=== PATIENT | female | born 1930 | race Caucasian/White ===

== ENCOUNTER 2020-11-10 18:53 | Inpatient (IN) ==
[2020-11-10] MEDS ORDERED: NS 0.9% 1000 ml BAG 1,000 ML IV ONE (18:55)
[2020-11-10] MEDS ORDERED: Iodixanol (CONTRAST) 320 MG/ML 100 ML SDV IV ONE (19:10)
[2020-11-10 19:51] LABS: Activated Partial Thrombo Time 25.6 seconds (26.0-38.0); INR 1.08 (0.86-1.15)
[2020-11-10 19:54] LABS: ABS Eosinophils 0.2 10^3/ul (0-0.6); ABS Lymphocytes 2.1 10^3/ul (1.0-4.8); ABS Monocytes 0.7 10^3/ul (0-0.8); ABS Neutrophils 4.1 10^3/ul (1.5-7.7); Eosinophil % 2.3 %; Hematocrit 37 % (35-47); Hemoglobin 12.1 g/dL (12.0-16.0); Lymphocyte % 29.9 %; Mean Corpuscular HGB Conc 33 g/dL (31-36); Mean Corpuscular Hemoglobin 31 pg (27-31); Mean Corpuscular Volume 93 fL (80-97); Mean Platelet Volume 7.7 fL (7.4-10.4); Platelet Count 242 10^3/uL (150-450); Red Blood Count 3.91 10^6 /uL (3.70-4.87); Red Cell Distribution Width 14 % (10-15); White Blood Count 7.1 10^3/uL (3.5-10.8)
[2020-11-10 20:09] LABS: Albumin/Globulin Ratio 1.6 (1-3); Calcium 9.2 mg/dL (8.6-10.3); EGFR African American 64.7 (>60); EGFR Non-African American 53.4 (>60); Globulin 2.5 g/dL (2-4); HDL Cholesterol 45.2 mg/dL; Total Bilirubin 0.4 mg/dL (0.2-1.0); Total Protein 6.5 g/dL (6.4-8.9)
[2020-11-10 20:10] LABS: Troponin I 0.01 ng/mL (<0.03)
[2020-11-10 20:21] LABS: Potassium 5.1 mmol/L (3.5-5.0)
[2020-11-11] MEDS ORDERED: hydrALAZINE 20 mg/ml 1 ML Vial IV IV SLOW PU ONE ×2 (00:01→02:16)
[2020-11-11] MEDS: Lactated Ringers 1000 ml BAG 1,000 ML IV SCH ×2 (00:09→21:55)
[2020-11-11] MEDS ORDERED: Dextrose 50% Syringe 50 ml 25 GM/50 ML SYRINGE IV PUSH PRN (02:17)
[2020-11-11] MEDS ORDERED: Labetalol IV 5 MG/ML 20 ml VIAL IV PUSH ONE ×2 (04:47→15:36)
[2020-11-11 07:29] LABS: ABS Eosinophils 0.1 10^3/ul (0-0.6); ABS Lymphocytes 2.1 10^3/ul (1.0-4.8); ABS Monocytes 0.7 10^3/ul (0-0.8); ABS Neutrophils 6.4 10^3/ul (1.5-7.7); Eosinophil % 0.6 %; Hematocrit 35 % (35-47); Lymphocyte % 22.4 %; Mean Corpuscular HGB Conc 34 g/dL (31-36); Mean Corpuscular Hemoglobin 31 pg (27-31); Mean Corpuscular Volume 91 fL (80-97); Mean Platelet Volume 7.5 fL (7.4-10.4); Nucleated Red Blood Cells % 0.1; Platelet Count 217 10^3/uL (150-450); Red Blood Count 3.89 10^6 /uL (3.70-4.87); Red Cell Distribution Width 13 % (10-15); White Blood Count 9.2 10^3/uL (3.5-10.8)
[2020-11-11] MEDS ORDERED: Albuterol HFA INHALER 8 gm MDI INH PRN (07:45)
[2020-11-11 07:47] LABS: Calcium 8.4 mg/dL (8.6-10.3); EGFR African American 98.6 (>60); EGFR Non-African American 81.5 (>60)
[2020-11-11] MEDS: Heparin DRIP 25,000 UNITS BAG 25,000 UNITS/500 ML BAG IV SCH (21:28)
[2020-11-12] MEDS: Lactated Ringers 1000 ml BAG 1,000 ML IV SCH ×2 (06:23→14:29)
[2020-11-13] MEDS: Lactated Ringers 1000 ml BAG 1,000 ML IV SCH (05:47)
[2020-11-13] MEDS: Heparin DRIP 25,000 UNITS BAG 25,000 UNITS/500 ML BAG IV SCH (05:49)
[2020-11-13 06:12] LABS: ABS Eosinophils 0.2 10^3/ul (0-0.6); ABS Lymphocytes 1.8 10^3/ul (1.0-4.8); ABS Monocytes 0.9 10^3/ul (0-0.8); Eosinophil % 1.9 %; Hematocrit 35 % (35-47); Lymphocyte % 20.5 %; Mean Corpuscular HGB Conc 35 g/dL (31-36); Mean Corpuscular Hemoglobin 31 pg (27-31); Mean Corpuscular Volume 90 fL (80-97); Nucleated Red Blood Cells % 0.1; Platelet Count 210 10^3/uL (150-450); Red Blood Count 3.85 10^6 /uL (3.70-4.87); Red Cell Distribution Width 13 % (10-15); White Blood Count 8.9 10^3/uL (3.5-10.8)
[2020-11-13 06:41] LABS: Calcium 8.7 mg/dL (8.6-10.3); EGFR African American 113.9 (>60); EGFR Non-African American 94.1 (>60); Potassium 3.7 mmol/L (3.5-5.0)
[2020-11-14 07:01] LABS: Urine Appearance Cloudy; Urine Bilirubin Negative (Negative); Urine Blood 1+ (Negative); Urine Color Yellow; Urine Glucose 3+(>=500 mg/dL) (Negative); Urine Ketones Negative (Negative); Urine Nitrite Positive (Negative); Urine Protein Negative (Negative); Urine Specific Gravity 1.006 (1.002-1.030); Urine Urobilinogen Negative (Negative)
[2020-11-14 07:23] LABS: Urine Bacteria Absent (Absent); Urine Red Blood Cell Trace(0-2/hpf) (Absent); Urine White Blood Cell Trace(0-5/hpf) (Absent)
[2020-11-14] MEDS ORDERED: Iodixanol (CONTRAST) 320 MG/ML 100 ML SDV IV SCH (12:04)
[2020-11-14] MEDS ORDERED: Iodixanol (CONTRAST) 320 MG/ML 100 ML SDV IV ONE (12:04)
[2020-11-14] MEDS: NS 0.9% 1000 ml BAG 1,000 ML IV SCH (13:40)
[2020-11-15] MEDS: NS 0.9% 1000 ml BAG 1,000 ML IV SCH (01:16)
[2020-11-15 05:02] LABS: ABS Eosinophils 0.1 10^3/ul (0-0.6); ABS Lymphocytes 1.1 10^3/ul (1.0-4.8); ABS Monocytes 0.8 10^3/ul (0-0.8); ABS Neutrophils 6.3 10^3/ul (1.5-7.7); Eosinophil % 0.7 %; Hematocrit 34 % (35-47); Hemoglobin 11.6 g/dL (12.0-16.0); Lymphocyte % 13.7 %; Mean Corpuscular HGB Conc 34 g/dL (31-36); Mean Corpuscular Hemoglobin 31 pg (27-31); Mean Corpuscular Volume 90 fL (80-97); Mean Platelet Volume 7.9 fL (7.4-10.4); Platelet Count 211 10^3/uL (150-450); Red Blood Count 3.76 10^6 /uL (3.70-4.87); Red Cell Distribution Width 14 % (10-15); White Blood Count 8.3 10^3/uL (3.5-10.8)
[2020-11-15 05:18] LABS: Calcium 8.2 mg/dL (8.6-10.3); EGFR African American 79.4 (>60); EGFR Non-African American 65.6 (>60); Potassium 3.8 mmol/L (3.5-5.0)
[2020-11-15 13:17] VITALS: BP 159/58
== END 2020-11-15 14:02 | disposition short-term general hospital (02) | DRG 64 ==
LOC: ED 18:53 → MEDTELE 18:53
PROVIDERS: ADMIT Internal Medicine; ATTEND Internal Medicine

== ENCOUNTER 2020-11-21 13:15 | Inpatient (IN) ==
[2020-11-21] MEDS ORDERED: Dextrose 50% Syringe 50 ml 25 GM/50 ML SYRINGE IV PUSH PRN (17:48)
[2020-11-22] MEDS: Heparin 5000 UNITS/ML 1 mL VIAL SUBCUT SCH ×2 (09:26→20:31)
[2020-11-22] MEDS: GLIMEPIRIDE 2 MG PO SCH ×2 (09:36→20:31)
[2020-11-23 06:57] LABS: ABS Eosinophils 0.2 10^3/ul (0-0.6); ABS Monocytes 0.7 10^3/ul (0-0.8); ABS Neutrophils 2.6 10^3/ul (1.5-7.7); Eosinophil % 3.4 %; Hematocrit 30 % (35-47); Hemoglobin 10.5 g/dL (12.0-16.0); Lymphocyte % 36.7 %; Mean Corpuscular HGB Conc 35 g/dL (31-36); Mean Corpuscular Hemoglobin 31 pg (27-31); Mean Corpuscular Volume 90 fL (80-97); Mean Platelet Volume 7.3 fL (7.4-10.4); Nucleated Red Blood Cells % 0.1; Platelet Count 276 10^3/uL (150-450); Red Blood Count 3.39 10^6 /uL (3.70-4.87); Red Cell Distribution Width 13 % (10-15); White Blood Count 5.4 10^3/uL (3.5-10.8)
[2020-11-23 07:10] LABS: Albumin 3.5 g/dL (3.2-5.2); Albumin/Globulin Ratio 1.3 (1-3); Calcium 8.6 mg/dL (8.6-10.3); EGFR African American 98.6 (>60); EGFR Non-African American 81.5 (>60); Globulin 2.6 g/dL (2-4); Potassium 4.4 mmol/L (3.5-5.0); Total Bilirubin 0.4 mg/dL (0.2-1.0); Total Protein 6.1 g/dL (6.4-8.9)
[2020-11-23] MEDS: Heparin 5000 UNITS/ML 1 mL VIAL SUBCUT SCH ×2 (08:57→20:25)
[2020-11-23] MEDS: GLIMEPIRIDE 2 MG PO SCH ×2 (08:57→20:24)
[2020-11-24] MEDS: Heparin 5000 UNITS/ML 1 mL VIAL SUBCUT SCH ×2 (08:16→20:11)
[2020-11-24] MEDS: GLIMEPIRIDE 2 MG PO SCH ×2 (08:16→20:11)
[2020-11-24] MEDS: Senna TAB 8.6 mg TAB PO PRN (20:10)
[2020-11-25] MEDS: GLIMEPIRIDE 2 MG PO SCH ×2 (08:12→20:05)
[2020-11-25] MEDS: Heparin 5000 UNITS/ML 1 mL VIAL SUBCUT SCH ×2 (08:14→20:05)
[2020-11-25 14:21] LABS: ABS Eosinophils 0.2 10^3/ul (0-0.6); ABS Lymphocytes 1.8 10^3/ul (1.0-4.8); ABS Monocytes 0.6 10^3/ul (0-0.8); ABS Neutrophils 4.9 10^3/ul (1.5-7.7); Eosinophil % 2.5 %; Hematocrit 35 % (35-47); Hemoglobin 11.7 g/dL (12.0-16.0); Lymphocyte % 24.4 %; Mean Corpuscular HGB Conc 34 g/dL (31-36); Mean Corpuscular Hemoglobin 31 pg (27-31); Mean Corpuscular Volume 92 fL (80-97); Mean Platelet Volume 7.5 fL (7.4-10.4); Nucleated Red Blood Cells % 0.1; Platelet Count 303 10^3/uL (150-450); Red Blood Count 3.81 10^6 /uL (3.70-4.87); Red Cell Distribution Width 13 % (10-15); White Blood Count 7.5 10^3/uL (3.5-10.8)
[2020-11-25 14:31] LABS: Calcium 9.1 mg/dL (8.6-10.3); EGFR African American 71.3 (>60); Magnesium 1.9 mg/dL (1.9-2.7); Phosphorus 3.6 mg/dL (2.5-5.0); Potassium 4.6 mmol/L (3.5-5.0)
[2020-11-25] MEDS ORDERED: NS 0.9% 500 ml BAG 500 ML IV ONE (14:51)
[2020-11-25 15:44] LABS: Albumin/Globulin Ratio 1.3 (1-3); Direct Bilirubin 0.1 mg/dL (0.03-0.18); Indirect Bilirubin 0.2 mg/dL (0.3-1.0); Total Bilirubin 0.3 mg/dL (0.2-1.0)
[2020-11-25 15:49] LABS: INR 1.03 (0.86-1.15)
[2020-11-25 16:20] LABS: Urine Appearance Cloudy; Urine Bilirubin Negative (Negative); Urine Blood 1+ (Negative); Urine Color Yellow; Urine Glucose Negative (Negative); Urine Ketones Negative (Negative); Urine Nitrite Negative (Negative); Urine Protein Negative (Negative); Urine Specific Gravity 1.013 (1.002-1.030); Urine Urobilinogen Negative (Negative)
[2020-11-25 16:34] LABS: Urine Bacteria Absent (Absent); Urine Red Blood Cell Absent (Absent); Urine White Blood Cell 1+(6-10/hpf) (Absent)
[2020-11-26] MEDS: GLIMEPIRIDE 2 MG PO SCH ×2 (08:26→21:03)
[2020-11-26] MEDS: Heparin 5000 UNITS/ML 1 mL VIAL SUBCUT SCH ×2 (08:26→21:03)
[2020-11-27] MEDS: Heparin 5000 UNITS/ML 1 mL VIAL SUBCUT SCH ×2 (10:05→21:19)
[2020-11-27] MEDS: GLIMEPIRIDE 2 MG PO SCH ×2 (10:09→21:19)
[2020-11-28] MEDS: GLIMEPIRIDE 2 MG PO SCH ×2 (10:10→21:14)
[2020-11-28] MEDS: Heparin 5000 UNITS/ML 1 mL VIAL SUBCUT SCH ×2 (10:10→21:14)
[2020-11-28] MEDS: Senna TAB 8.6 mg TAB PO PRN (21:14)
[2020-11-29] MEDS: Cefepime 1 GM in Dextrose 1 GM/50 ML BAG IV SCH ×3 (00:10→23:36)
[2020-11-29] MEDS: Heparin 5000 UNITS/ML 1 mL VIAL SUBCUT SCH ×2 (08:06→20:25)
[2020-11-29] MEDS: GLIMEPIRIDE 2 MG PO SCH ×2 (08:06→20:23)
[2020-11-30 07:50] LABS: ABS Eosinophils 0.2 10^3/ul (0-0.6); ABS Lymphocytes 1.5 10^3/ul (1.0-4.8); ABS Monocytes 0.4 10^3/ul (0-0.8); ABS Neutrophils 3.3 10^3/ul (1.5-7.7); Eosinophil % 3.7 %; Hematocrit 34 % (35-47); Hemoglobin 11.9 g/dL (12.0-16.0); Lymphocyte % 27.2 %; Mean Corpuscular HGB Conc 35 g/dL (31-36); Mean Corpuscular Hemoglobin 32 pg (27-31); Mean Corpuscular Volume 91 fL (80-97); Mean Platelet Volume 7.4 fL (7.4-10.4); Platelet Count 275 10^3/uL (150-450); Red Blood Count 3.68 10^6 /uL (3.70-4.87); Red Cell Distribution Width 14 % (10-15); White Blood Count 5.5 10^3/uL (3.5-10.8)
[2020-11-30] MEDS: GLIMEPIRIDE 2 MG PO SCH ×2 (08:07→21:51)
[2020-11-30 08:08] LABS: Albumin 3.9 g/dL (3.2-5.2); Albumin/Globulin Ratio 1.3 (1-3); Calcium 9.3 mg/dL (8.6-10.3); EGFR African American 90.8 (>60); EGFR Non-African American 75.1 (>60); Globulin 3.1 g/dL (2-4); Total Bilirubin 0.5 mg/dL (0.2-1.0)
[2020-11-30] MEDS: Heparin 5000 UNITS/ML 1 mL VIAL SUBCUT SCH ×2 (08:15→21:50)
[2020-11-30 09:19] LABS: Potassium 4.8 mmol/L (3.5-5.0)
[2020-11-30] MEDS: Cefepime 1 GM in Dextrose 1 GM/50 ML BAG IV SCH ×2 (10:00→23:50)
[2020-11-30] MEDS: Senna TAB 8.6 mg TAB PO PRN (21:51)
[2020-12-01] MEDS: GLIMEPIRIDE 2 MG PO SCH ×2 (09:07→21:52)
[2020-12-01] MEDS: Heparin 5000 UNITS/ML 1 mL VIAL SUBCUT SCH ×2 (09:07→21:53)
[2020-12-01] MEDS: Cefepime 1 GM in Dextrose 1 GM/50 ML BAG IV SCH ×2 (13:20→22:59)
[2020-12-02] MEDS: Heparin 5000 UNITS/ML 1 mL VIAL SUBCUT SCH ×2 (09:49→21:20)
[2020-12-02] MEDS: GLIMEPIRIDE 2 MG PO SCH ×2 (10:00→21:21)
[2020-12-02] MEDS: Cefepime 1 GM in Dextrose 1 GM/50 ML BAG IV SCH (11:05)
[2020-12-02] MEDS: Cefepime 1 GM in NS 0.9% 50 ML 50 ML IVPB SCH (22:46)
[2020-12-03 08:03] LABS: Albumin 3.8 g/dL (3.2-5.2); Albumin/Globulin Ratio 1.3 (1-3); Calcium 9.1 mg/dL (8.6-10.3); EGFR African American 81.7 (>60); EGFR Non-African American 67.5 (>60); Globulin 2.9 g/dL (2-4); Total Bilirubin 0.5 mg/dL (0.2-1.0); Total Protein 6.7 g/dL (6.4-8.9)
[2020-12-03] MEDS: Heparin 5000 UNITS/ML 1 mL VIAL SUBCUT SCH ×2 (10:28→21:00)
[2020-12-03] MEDS: GLIMEPIRIDE 2 MG PO SCH ×2 (10:28→21:00)
[2020-12-03] MEDS: Cefepime 1 GM in NS 0.9% 50 ML 50 ML IVPB SCH ×2 (12:25→23:17)
[2020-12-03 15:00] LABS: HIV 4th Generation Nonreactive (Nonreactive)
[2020-12-03 15:32] LABS: Hepatitis B Surface Antigen Nonreactive (Nonreactive)
[2020-12-03 15:50] LABS: Hepatitis C Antibody Negative (Negative)
[2020-12-04 05:50] VITALS: BP 146/80
[2020-12-04] MEDS: Heparin 5000 UNITS/ML 1 mL VIAL SUBCUT SCH (08:44)
== END 2020-12-04 15:22 | disposition home or self-care (01) | DRG 57 ==
LOC: PMRU 14:08
PROVIDERS: ADMIT Physical Medicine & Rehabilitation; ATTEND Physical Medicine & Rehabilitation